=== PATIENT | male | born 1975 | race Two or more races ===

== ENCOUNTER 2019-05-11 16:28 | Emergency (ER) | payer OTHER, SELFPAY ==
[2019-05-11] MEDS ORDERED: DILANTIN PO (16:38)
[2019-05-11] MEDS ORDERED: BUTALB-APAP-CA1 EACH PO (17:38)
[2019-05-11 17:50] VITALS: BP 154/109
== END 2019-05-11 17:53 | disposition home or self-care (01) ==
LOC: D.ER 16:28
DX: S16.1XXA Strain of muscle, fascia and tendon at neck level, initial encounter (principal); V89.2XXA Person injured in unspecified motor-vehicle accident, traffic, initial encounter; R51 Headache